=== PATIENT | male | born 1945 | race Caucasian/White ===

== ENCOUNTER 2022-06-30 15:30 | Observation (INO) | payer OTHER ==
[~2022-06-30] VITALS: Ht 190.5 cm; Wt 90.7 kg
[2022-06-30] MEDS ORDERED: LIDO700A20 (15:59)
[2022-06-30] MEDS ORDERED: OXYC5 PO (15:59)
[2022-06-30] MEDS ORDERED: ESCI20 PO (15:59)
[2022-06-30] MEDS ORDERED: FLONASE SENSIM5.9 M1 (16:00)
[2022-06-30] MEDS ORDERED: HYDPAM50 PO (16:00)
[2022-06-30] MEDS ORDERED: TAMS.4ER PO (16:00)
[2022-06-30] MEDS ORDERED: ZOCOR20 MG PO (16:01)
[2022-06-30] MEDS ORDERED: THERA-D2000 UNIT PO (16:01)
[2022-06-30] MEDS ORDERED: DOCU100 (16:01)
[2022-07-01 05:37] LABS: BASOPHILS ABSOLUTE AUTO 0.01 K/mm3 (0.00-0.23); BASOPHILS PERCENT AUTO 0 % (0-2); EOSINOPHILS ABSOLUTE AUTO 0.17 K/mm3 (0.00-0.68); EOSINOPHILS PERCENT AUTO 4 % (0-6); Hematocrit 40.9 % (37.0-53.0); Hemoglobin 13.9 g/dL (13.5-17.5); IMMATURE GRAN PERCENT AUTO 0 % (0-1); LYMPHOCYTES ABSOLUTE AUTO 0.68 K/mm3 (0.84-5.20); LYMPHOCYTES PERCENT AUTO 16 % (21-46); MONOCYTES ABSOLUTE AUTO 0.32 K/mm3 (0.16-1.47); MONOCYTES PERCENT AUTO 7 % (4-13); Mean Corpuscular HGB 31.7 pg (26.0-34.0); Mean Corpuscular Volume 93 fL (80-100); Mean Platelet Volume 11.2 fL (9.1-12.4); NEUTROPHILS ABSOLUTE AUTO 3.16 K/mm3 (1.96-9.15); NEUTROPHILS PERCENT AUTO 73 % (41-73); Platelet Count 149 K/mm3 (150-400); RDW Coefficient Variation 13.4 % (11.7-14.2); RDW Standard Deviation 46.2 fL (35.1-46.3); Red Blood Cell Count 4.39 M/mm3 (4.30-5.90); White Blood Cell Count 4.34 K/mm3 (4.00-11.30)
[2022-07-01 06:08] LABS: Bun/Creatinine Ratio 21.4 (12.0-20.0); Calcium, Blood 8.4 mg/dL (8.5-10.1); Creatinine, Blood 0.84 mg/dL (0.60-1.20); Potassium, Blood 3.8 mmol/L (3.5-5.5)
--- NOTE | 2022-07-01 07:42 | NUR ---
SUMMARY PT POTENTIAL PREOP APPY-PT KAY-EKG ORDERED PREOP.PT IN NO DISTRESS-NPO
--- NOTE | 2022-07-01 09:20 | NUR ---
TO DAY SURGERY VIA GOURNEY. NOON DOSE OF ABX SENT w/ PT.
--- NOTE | 2022-07-01 12:50 | NUR ---
POST OP RETURNS TO ROOM 211 VIA MAGALIE & ANABELLA THEN STANDS TO TRANSFER TO HOSPITAL BED VIA SBA. PLEASANT & UPBEAT. REPORTS FEELING MUCH BETTER. ABD SOFT, MILDLY DISTENDED w/ LAP SITES x 3 w/ STERI STRIPS OVER. NO DRNG NOTED. LUNGS CLEAR, SLIGHTLY DIM IN BASES. ENCOURAGED TCDB w/ SPLINTING. VSS. DENIES N/V. CLEAR LQ's GIVEN. IVF RESTARTED & WILL GIVE NOON IV ABX WHEN IT ARRIVES FROM OR.
--- NOTE | 2022-07-01 18:33 | NUR ---
SHIFT SUMMARY PT HAD LAP APPY TODAY & HAS DONE VERY WELL POST OP. HAS BEEN OOB. EATING, DRINKING, VOIDING WELL. PAIN WELL CONTROLLED. HOPEFUL TO DC TOMORROW.
--- NOTE | 2022-07-02 07:33 | NUR ---
POD 1 S/P LAP APPY. PT VSS T/O NIGHT. INCISIONS CDI. PAIN MGD W/SCHEDULED PAIN MEDS W/REP RELIEF. PT LEIGHA DIET, DENIED N/V, REP +FLATUS. PLAN TO MOBILIZE AND D/C HOME TODAY.
--- NOTE | 2022-07-02 10:00 | NUR ---
DISCHARGE INSTRUCTIONS PT WISHES TO WAIT FOR TO ARRIVE TO DISCUSS INFO. PACKET & PT READY, WAITING ON . EXPECTED EAT IS 1300.
[2022-07-02] MEDS ORDERED: AMOCLA875 PO (10:06)
--- NOTE | 2022-07-02 10:20 | NUR ---
THERAPY DOG VISIT BY JOAN; PT ENJOYED VERY MUCH.
--- NOTE | 2022-07-02 13:20 | NUR ---
DISCHARGE DISCUSSED INSTRUCTIONS w/ SPOUSE & PT. PT HAS BEEN INDEPENDENT w/ A STRONG GAIT. TOLERATING DIET. PASSING GAS. PLANS TO TAKE HIS FIBER PILLS WHEN HE GETS HOME. SPOUSE IS PACKING BELONGINGS & WILL CALL FOR WC WHEN READY.
--- NOTE | 2022-07-02 13:43 | NUR ---
ESCORTED OUT VIA WC
== END 2022-07-02 14:00 | disposition home or self-care (01) ==
LOC: ER 15:30 → SURS 15:31
PROVIDERS: Surgery; ADMIT Surgery
PROC: 0DTJ4ZZ Resection of Appendix, Percutaneous Endoscopic Approach (ICD-10-PCS; principal; 2022-07-01 11:00)
DX: K35.80 Unspecified acute appendicitis (principal); E78.5 Hyperlipidemia, unspecified
CPT/HCPCS: 36415; 80048; 85025; 88304; 93005; 93010; 96361; 96365; 96366; 96376; A9270; G0378; J0295; J1100; J2405; J2704; J2795; J3010; J7120

== ENCOUNTER 2023-09-07 16:17 | Emergency (ER) | payer OTHER ==
[~2023-09-07] VITALS: Ht 198.1 cm; Wt 104.3 kg
[~2023-09-07 16:17] MED LIST: AMOCLA875 PO; DICL75ER PO; DOCU100 PO; ESCI20 PO; FLONASE SENSIM5.9 M1; HYDPAM50 PO; HYDRA50 PO; LIDO700A20; OXYC5 PO; TAMS.4ER PO; THERA-D2000 UNIT PO; ZOCOR20 MG PO
[2023-09-07 16:24] VITALS: BP 139/84
[2023-09-07 17:00] LABS: BASOPHILS ABSOLUTE AUTO 0.03 K/mm3 (0.00-0.23); BASOPHILS PERCENT AUTO 1 % (0-2); EOSINOPHILS ABSOLUTE AUTO 0.19 K/mm3 (0.00-0.68); EOSINOPHILS PERCENT AUTO 4 % (0-6); Hematocrit 44.3 % (37.0-53.0); Hemoglobin 14.8 g/dL (13.5-17.5); IMMATURE GRAN ABSOLUTE AUTO 0.01 K/mm3 (0.00-0.10); IMMATURE GRAN PERCENT AUTO 0 % (0-1); LYMPHOCYTES ABSOLUTE AUTO 1.26 K/mm3 (0.84-5.20); LYMPHOCYTES PERCENT AUTO 28 % (21-46); MONOCYTES ABSOLUTE AUTO 0.34 K/mm3 (0.16-1.47); MONOCYTES PERCENT AUTO 8 % (4-13); Mean Corpuscular HGB 31.8 pg (26.0-34.0); Mean Corpuscular HGB Conc 33.4 g/dL (31.5-36.5); Mean Corpuscular Volume 95 fL (80-100); Mean Platelet Volume 10.9 fL (9.1-12.4); NEUTROPHILS ABSOLUTE AUTO 2.73 K/mm3 (1.96-9.15); NEUTROPHILS PERCENT AUTO 60 % (41-73); Platelet Count 158 K/mm3 (150-400); RDW Coefficient Variation 13.8 % (11.7-14.2); RDW Standard Deviation 48.6 fL (35.1-46.3); Red Blood Cell Count 4.65 M/mm3 (4.30-5.90); White Blood Cell Count 4.56 K/mm3 (4.00-11.30)
[2023-09-07 17:08] LABS: Source, Urine Clean Catch
[2023-09-07 17:17] LABS: Appearance, Urine Clear (Clear); Bilirubin, Urine Neg (Neg); Blood, Urine 5+ (Neg); Color, Urine Yellow (P-Yellow); Glucose Qualitative, Urine Neg (Neg); Ketones, Urine 1+ (Neg); Leukocyte Esterase, Urine Neg (Neg); Nitrite, Urine Neg (Neg); Protein, Urine 1+ (Neg); Specific Gravity, Urine 1.015 (1.003-1.022); Urobilinogen, Urine NORM (Normal)
[2023-09-07 17:24] LABS: Albumin, Blood 4.1 g/dL (3.4-5.0); Albumin/Globulin Ratio 1.4 (0.8-1.8); Bilirubin, Total 0.5 mg/dL (0.1-1.0); Bun/Creatinine Ratio 25.1 (12.0-20.0); Globulin, Blood 2.9 g/dL (2.2-4.0); Potassium, Blood 4.1 mmol/L (3.5-5.5)
[2023-09-07 17:27] LABS: Red Blood Cells, Urine 25-50 /hpf (0-2)
[2023-09-07 17:28] LABS: Bacteria Mod /hpf; Squamous Epithelial Cells Rare /hpf (Few); Yeast/Fungi Urine Rare /hpf
== END 2023-09-07 19:06 | disposition home or self-care (01) ==
LOC: ER 16:17
PROVIDERS: Physician Assistant
DX: R31.29 Other microscopic hematuria (principal); N40.1 Benign prostatic hyperplasia with lower urinary tract symptoms; R35.0 Frequency of micturition; Z88.8 Allergy status to other drugs, medicaments and biological substances; Z79.899 Other long term (current) drug therapy
CPT/HCPCS: 74177; 80053; 81001; 83690; 85025; 99284-25; Q9967

== ENCOUNTER 2023-09-10 12:26 | Observation (INO) | payer OTHER ==
[~2023-09-10] VITALS: Ht 198.1 cm; Wt 115.0 kg
[2023-09-10 13:14] LABS: BASOPHILS ABSOLUTE AUTO 0.03 K/mm3 (0.00-0.23); BASOPHILS PERCENT AUTO 1 % (0-2); EOSINOPHILS ABSOLUTE AUTO 0.09 K/mm3 (0.00-0.68); EOSINOPHILS PERCENT AUTO 2 % (0-6); Hematocrit 43.4 % (37.0-53.0); Hemoglobin 14.5 g/dL (13.5-17.5); IMMATURE GRAN ABSOLUTE AUTO 0.01 K/mm3 (0.00-0.10); IMMATURE GRAN PERCENT AUTO 0 % (0-1); LYMPHOCYTES ABSOLUTE AUTO 0.65 K/mm3 (0.84-5.20); LYMPHOCYTES PERCENT AUTO 13 % (21-46); MONOCYTES ABSOLUTE AUTO 0.29 K/mm3 (0.16-1.47); MONOCYTES PERCENT AUTO 6 % (4-13); Mean Corpuscular HGB 31.7 pg (26.0-34.0); Mean Corpuscular HGB Conc 33.4 g/dL (31.5-36.5); Mean Corpuscular Volume 95 fL (80-100); Mean Platelet Volume 11.3 fL (9.1-12.4); NEUTROPHILS ABSOLUTE AUTO 4.09 K/mm3 (1.96-9.15); NEUTROPHILS PERCENT AUTO 79 % (41-73); Platelet Count 155 K/mm3 (150-400); RDW Coefficient Variation 13.9 % (11.7-14.2); RDW Standard Deviation 47.8 fL (35.1-46.3); Red Blood Cell Count 4.58 M/mm3 (4.30-5.90); White Blood Cell Count 5.16 K/mm3 (4.00-11.30)
[2023-09-10 13:37] LABS: Albumin, Blood 4.1 g/dL (3.4-5.0); Albumin/Globulin Ratio 1.5 (0.8-1.8); Bilirubin, Total 0.7 mg/dL (0.1-1.0); Bun/Creatinine Ratio 29.6 (12.0-20.0); Calcium, Blood 9.1 mg/dL (8.5-10.1); Creatinine, Blood 0.81 mg/dL (0.60-1.20); Globulin, Blood 2.8 g/dL (2.2-4.0); Potassium, Blood 4.4 mmol/L (3.5-5.5); Total Protein, Blood 6.9 g/dL (6.4-8.2)
[2023-09-10] MEDS ORDERED: CARBLEV25 SL (14:05)
[2023-09-10] MEDS ORDERED: TAMS.4ER PO (14:21)
[2023-09-10] MEDS ORDERED: SIMV40 PO (14:21)
[2023-09-10] MEDS ORDERED: Percocet 5-3251 EACH PO (14:21)
[2023-09-10] MEDS ORDERED: Acetaminophen 650 MG Supp PR PRN (15:50)
[2023-09-10] MEDS ORDERED: Bisacodyl 10 MG Supp PR PRN (15:50)
[2023-09-10] MEDS ORDERED: TraZODone HCl 50 MG Tab PO PRN (15:55)
[2023-09-10] MEDS ORDERED: NS 500 ML IV ONE (15:55)
[2023-09-10] MEDS ORDERED: FLU VACC QS2023-24(6MOS UP)/PF 60 MCG/0.5 ML SYRINGE IM SCH (15:55)
[2023-09-10] MEDS ORDERED: Magnesium Hydroxide Conc 10 ML UDC PO PRN (15:55)
[2023-09-10] MEDS ORDERED: OxyCODONE HCL 5 MG TAB PO PRN (15:55)
[2023-09-10] MEDS ORDERED: NS 0 ML IV ONE (16:08)
[2023-09-10] MEDS ORDERED: LORazepam Conc 2 MG/ML - 1ML UDC PO PRN (16:40)
[2023-09-10 19:46] VITALS: BP 128/82
[2023-09-10] MEDS ORDERED: DICL75ER PO (20:11)
[2023-09-10] MEDS ORDERED: DOCU100 PO (20:12)
[2023-09-10] MEDS ORDERED: DICLOFENAC SODI50 GM TOP (20:12)
[2023-09-10] MEDS ORDERED: GUAI600T33 PO (20:13)
[2023-09-10] MEDS ORDERED: LIDO700A20 TOP (20:14)
[2023-09-10] MEDS ORDERED: Hydroxyzine HCl50 MG PO (20:14)
[2023-09-10] MEDS ORDERED: OXYC5 PO (20:15)
[2023-09-10] MEDS ORDERED: NARCAN4 M1 (20:15)
[2023-09-10] MEDS ORDERED: SODCHL2SO BOTHEYES (20:16)
[2023-09-10] MEDS ORDERED: Famotidine 20 MG Tab PO SCH (21:00)
[2023-09-10] MEDS ORDERED: Lactobacil 2-S.Thermo-Bifido 1 1 Cap PO SCH (21:00)
[2023-09-10] MEDS ORDERED: Diabetic GuaiFENesin 100 MG/5 ML 5MLUDC PO SCH (21:40)
[2023-09-10] MEDS ORDERED: GuaiFENesin 600 MG TabCR PO ONE (22:15)
--- NOTE | 2023-09-11 00:32 | NUR ---
PATIENT CAME IN FROM ED PER STRETCHER, ON ROOM AIR. WITH PIV LINE ON RIGHT AC AND WITH ONGOING IV FLUIDS INFUSING WELL. VITAL SIGNS TAKEN AND RECORDED. SKIN CHECK DONE WITH ANDERSON MARSHALL.
[2023-09-11 03:18] VITALS: BP 123/78
[2023-09-11 04:59] LABS: BASOPHILS ABSOLUTE AUTO 0.02 K/mm3 (0.00-0.23); BASOPHILS PERCENT AUTO 1 % (0-2); EOSINOPHILS ABSOLUTE AUTO 0.15 K/mm3 (0.00-0.68); EOSINOPHILS PERCENT AUTO 4 % (0-6); Hematocrit 39.6 % (37.0-53.0); Hemoglobin 13.1 g/dL (13.5-17.5); IMMATURE GRAN ABSOLUTE AUTO 0.01 K/mm3 (0.00-0.10); IMMATURE GRAN PERCENT AUTO 0 % (0-1); LYMPHOCYTES ABSOLUTE AUTO 0.88 K/mm3 (0.84-5.20); LYMPHOCYTES PERCENT AUTO 24 % (21-46); MONOCYTES ABSOLUTE AUTO 0.36 K/mm3 (0.16-1.47); MONOCYTES PERCENT AUTO 10 % (4-13); Mean Corpuscular HGB 31.3 pg (26.0-34.0); Mean Corpuscular HGB Conc 33.1 g/dL (31.5-36.5); Mean Corpuscular Volume 95 fL (80-100); Mean Platelet Volume 11.2 fL (9.1-12.4); NEUTROPHILS ABSOLUTE AUTO 2.22 K/mm3 (1.96-9.15); NEUTROPHILS PERCENT AUTO 61 % (41-73); Platelet Count 145 K/mm3 (150-400); RDW Coefficient Variation 13.8 % (11.7-14.2); RDW Standard Deviation 48.2 fL (35.1-46.3); Red Blood Cell Count 4.18 M/mm3 (4.30-5.90); White Blood Cell Count 3.64 K/mm3 (4.00-11.30)
[2023-09-11 05:43] LABS: Albumin, Blood 3.5 g/dL (3.4-5.0); Albumin/Globulin Ratio 1.5 (0.8-1.8); Bilirubin, Total 0.6 mg/dL (0.1-1.0); Bun/Creatinine Ratio 22.3 (12.0-20.0); Calcium, Blood 8.8 mg/dL (8.5-10.1); Creatinine, Blood 0.94 mg/dL (0.60-1.20); Globulin, Blood 2.4 g/dL (2.2-4.0); Magnesium, Blood 2.4 mg/dL (1.6-2.4); Potassium, Blood 4.1 mmol/L (3.5-5.5); Total Protein, Blood 5.9 g/dL (6.4-8.2)
--- NOTE | 2023-09-11 05:58 | NUR ---
PATIENT IS ALERT AND ORIENTED. ON ROOM AIR. WITH PIV LINE ON RIGHT AC PATENT AND INTACT. ON TELE MONITORING. PATIENT USES URINAL APPROPRIATELY. CPAP WAS PLACED AND CONT BIOX ON. NEEDS ATTENDED. FOR CT OF HEAD, NECK SOFT TISSUE WO CONTRAST. MEDICATED ACCORDINGLY FOR HIS LOW BACK PAIN. CALL LIGHT WITHIN PATIENT'S REACH. WILL CONTINUE TO MONITOR.
[2023-09-11 07:48] VITALS: BP 126/75
[2023-09-11] MEDS ORDERED: Tamsulosin HCl 0.4 MG Cap PO SCH (09:00)
[2023-09-11] MEDS ORDERED: Citalopram Hydrobromide 20 MG Tab PO SCH (09:00)
[2023-09-11] MEDS ORDERED: GuaiFENesin 600 MG TabCR PO SCH (09:00)
[2023-09-11] MEDS ORDERED: Enoxaparin 40 MG/0.4 ML SYR SC SCH (09:00)
--- NOTE | 2023-09-11 13:41 | NUR ---
PATIENT DISCHARGED HOME WITH AT 1330. WHEELED OUTSIDE IN WHEELCHAIR. ZIO PATCH IN PLACE PRIOR TO DC
== END 2023-09-11 13:28 | disposition home or self-care (01) ==
LOC: ER 12:26 → MEDS 12:27 → ENPENDDIS 09-11 12:35 → MEDS 09-11 13:28
PROVIDERS: Physician Assistant; ADMIT Hospitalist
DX: R00.1 Bradycardia, unspecified (principal); E78.5 Hyperlipidemia, unspecified; I50.9 Heart failure, unspecified; E86.0 Dehydration; Z87.891 Personal history of nicotine dependence
CPT/HCPCS: 36415; 70450; 71046; 80053; 83735; 84443; 84484; 85025; 93005; 93010; 93246; 93306; 94660; 94762; 96360; 96361; 99285-25; A9270; G0378; J7030; J7040